=== PATIENT | female | born 1960 | race Hispanic/Latino ===

== ENCOUNTER 2020-08-24 09:01 | Emergency (ER) | payer OTHER ==
[2020-08-24 09:29] VITALS: BP 130/79
--- NOTE | 2020-08-24 09:53 | Emergency Department Report ---
ED General Adult HPI - General Chief complaint: Fall Stated complaint: FALL GLF/PAIN Time Seen by Provider: 08/24/20 09:47 Source: patient Mode of arrival: Wheelchair Limitations: No Limitations - History of Present Illness Initial comments: 60-year-old female patient presents with complaints of left rib pain after losing her balance and falling, hitting her side on the tub. She denies any preceding dizziness, chest pain, shortness of breath, headache or other complaints. She rates her current pain as a 9/10 in severity and states it wor sens with movement of the thorax and left arm. She denies any chest pain, shortness of breath, loss of bladder/bowel control, difficulty with ambulation, or numbness/tingling/weakness in her limbs. Patient has history of hypothyroidism and hypertension. No head trauma or loss of consciousness per patient Severity scale (0 -10): 10 - Related Data Previous Rx's Medication Instructions Recorded Last Taken Type Naproxen 500 mg PO BID PRN #14 tablet 08/24/20 Unknown Rx methOCARBAMOL [Robaxin TAB] 500 mg PO TID PRN #18 tablet 08/24/20 Unknown Rx Allergies Allergy/AdvReac Type Severity Reaction Status Date / Time No Known Allergies Allergy Unverified 08/24/20 09:28 ED Review of Systems ROS: Stated complaint: FALL GLF/PAIN Other details as noted in HPI Constitutional: denies: chills, fever, malaise Respiratory: denies: cough, shortness of breath Cardiovascular: denies: chest pain, edema, syncope Gastrointestinal: denies: abdominal pain, nausea, vomiting Skin: denies: rash, lesions, change in color Neurological: denies: headache, numbness, paresthesias ED Past Medical Hx - Past Medical History Previous Medical History?: Yes Hx Hypertension: Yes Additional medical history: Hypothyroidism - Medications Home Medications: Home Medications Medication Instructions Recorded Confirmed Last Taken Type Naproxen 500 mg PO BID PRN #14 tablet 08/24/20 Unknown Rx methOCARBAMOL [Robaxin TAB] 500 mg PO TID PRN #18 tablet 08/24/20 Unknown Rx ED Physical Exam - General Limitations: No Limitations General appearance: alert, in no apparent distress - Head Head exam: Present: atraumatic, normocephalic - Eye Eye exam: Present: normal appearance. Absent: scleral icterus - Neck Neck exam: Present: normal inspection, full ROM. Absent: tenderness - Respiratory Respiratory exam: Present: normal lung sounds bilaterally, chest wall tenderness (Tenderness to palpation noted to left lateral ribs and left flank ribs without obvious deformity or bruising noted). Absent: respiratory distress - Cardiovascular Cardiovascular Exam: Present: regular rate, normal rhythm. Absent: systolic murmur, diastolic murmur, rubs, gallop - GI/Abdominal GI/Abdominal exam: Present: soft, normal bowel sounds. Absent: distended, tenderness, guarding, rebound, rigid - Neurological Exam Neurological exam: Present: alert, oriented X3, normal gait - Psychiatric Psychiatric exam: Present: normal affect, normal mood - Skin Skin exam: Present: warm, dry, intact, normal color. Absent: rash ED Course Vital Signs 08/24/20 09:28 Temperature 98.0 F Pulse Rate 77 Respiratory 16 Rate Blood Pressure 130/79 [Right] O2 Sat by Pulse 96 Oximetry ED Medical Decision Making - Radiology Data Radiology results: report reviewed LEFT RIBS 3 VIEWS INDICATION: lateral and posterior pain, fell, hit side on tub. COMPARISON: None. IMPRESSION: No displaced left rib deformity is identified on x-ray. The left lung is well- aerated. - Medical Decision Making 60-year-old female patient presents with complaints of left rib pain after losing her balance and falling, hitting her side on the tub. She denies any preceding dizziness, chest pain, shortness of breath, headache or other complaints. She rates her current pain as a 9/10 in severity and states it worsens with movement of the thorax and left arm. She denies any chest pain, shortness of breath, loss of bladder/bowel control, difficulty with ambulation, or numbness/tingling/weakness in her limbs. Patient has history of hypothyroidism and hypertension. No head trauma or loss of consciousness per patient X-rays negative for rib fractures or other bony/lung abnormalities. Will treat patient for rib contusion with NSAIDs and muscle relaxers. Also recommend icing and follow-up with primary care in 3 to 5 days. Discussed signs and symptoms that should prompt immediate return to the emergency department in detail with patient who verbalizes understanding. She is well-appearing, her vitals are normal, she is stable for discharge home. Critical care attestation.: If time is entered above; I have spent that time in minutes in the direct care of this critically ill patient, excluding procedure time. ED Disposition Clinical Impression: Contusion of rib Qualifiers: Encounter type: initial encounter Laterality: left Qualified Code(s): S20.212A - Contusion of left front wall of thorax, initial encounter Disposition: - TO HOME OR SELFCARE Is pt being admited?: No Condition: Stable Prescriptions: Naproxen 500 mg PO BID PRN #14 tablet PRN Reason: pain methOCARBAMOL [Robaxin TAB] 500 mg PO TID PRN #18 tablet PRN Reason: muscle spasm/tightness Referrals: JORGE DAVIDSON [Other] - 3-5 Days Forms: Work/School Release Form(ED)
[2020-08-24] MEDS ORDERED: HYDROcodone/ACETAMINOPHEN 5-325 MG TAB PO ONE (09:54)
[2020-08-24] MEDS ORDERED: IBUPROFEN 800 MG TAB PO ONE (09:54)
--- NOTE | 2020-08-24 10:47 | XRay Report ---
LEFT RIBS 3 VIEWS INDICATION: lateral and posterior pain, fell, hit side on tub. COMPARISON: None. IMPRESSION: No displaced left rib deformity is identified on x-ray. The left lung is well-aerated. Signer Name: Giuseppe Tidwell Jr, MD Signed: 08/24/2020 10:43 AM Workstation Name: [id number]
== END 2020-08-24 11:47 | disposition home or self-care (01) ==
LOC: ED 09:01
DX: S20.212A Contusion of left front wall of thorax, initial encounter (principal); Z79.899 Other long term (current) drug therapy; X50.9XXA Other and unspecified overexertion or strenuous movements or postures, initial encounter; Y93.89 Activity, other specified; Y92.89 Other specified places as the place of occurrence of the external cause; Y99.8 Other external cause status
CPT/HCPCS: 99283